=== PATIENT | female | born 1975 | race Hispanic/Latino ===

== ENCOUNTER 2023-11-08 03:33 | Emergency (ER) | payer MEDICAID ==
[2023-11-08 04:17] LABS: HEMATOCRIT 37.6 % (36-48); MEAN CORPUSCULAR HEMOGLOBIN 30.9 pg (27.0-33.0); MEAN CORPUSCULAR HGB CONC 34.3 g/dL (32.0-36.0); MEAN CORPUSCULAR VOLUME 90.2 fL (79-99); RED BLOOD CELL COUNT(AUTO) 4.17 MIL/uL (4.00-5.50); RED CELL DISTRIBUTION WIDTH 14.9 % (11.0-15.5); WHITE BLOOD COUNT (AUTO) 13.1 K/uL (4.8-10.8)
[2023-11-08 04:28] LABS: CREATININE 1.1 mg/dL (0.5-1.0)
[2023-11-08 04:32] LABS: BILIRUBIN,TOTAL 0.6 mg/dL (0.2-1.0); TOTAL PROTEIN, SERUM 7.2 g/dL (6.0-8.3)
[2023-11-08] MEDS: KETOROLAC 15MG/ML VIAL (15MG/ML) IV ONE (04:38)
[2023-11-08] MEDS ORDERED: AZIT500T4 PO (05:05)
[2023-11-08] MEDS ORDERED: PRED20TA3 PO (05:05)
[2023-11-08] MEDS ORDERED: ALBUHFA IH (05:05)
[2023-11-08] MEDS: SOLU-MEDROL 40MG VIAL IVP ONE (05:10)
[2023-11-08 05:36] VITALS: PULSE 91; RESP 20
[2023-11-08] MEDS: IPRATROPIUM/ALBUTEROL SULFATE 3 ML SOLUTION IH ONE (05:36)
[2023-11-08 06:34] LABS: SARS-CoV-2, RNA, NAAT NEGATIVE SARS CoV-2 (NEGATIVE)
[2023-11-08 06:39] LABS: INFLUENZA TYPE A Negative For Type A (NEGATIVE); INFLUENZA TYPE B Negative For Type B (NEGATIVE)
[2023-11-08 06:53] VITALS: BP 107/58; PULSE 85; RESP 20; O2SAT 96
== END 2023-11-08 06:54 | disposition home or self-care (01) ==
LOC: EDH 03:33
DX: J44.1 Chronic obstructive pulmonary disease with (acute) exacerbation (principal); M25.511 Pain in right shoulder; G47.33 Obstructive sleep apnea (adult) (pediatric); E66.01 Morbid (severe) obesity due to excess calories; F31.9 Bipolar disorder, unspecified; F41.9 Anxiety disorder, unspecified; F17.200 Nicotine dependence, unspecified, uncomplicated; Z20.822 Contact with and (suspected) exposure to COVID-19; Z79.899 Other long term (current) drug therapy; Z98.890 Other specified postprocedural states
CPT/HCPCS: 99284; 96374; 71045; 87635; 96375; 80053; 85027; 87804 ×2; 36415; 73020; 94640; J2919; J1885